=== PATIENT | male | born 1965 | race Hispanic/Latino ===

== ENCOUNTER → 2017-07-24 | Outpatient (CLI) | payer OTHER ==
[~2017-07-24] MED LIST: LOPID600 MG PO
--- NOTE | 2017-07-24 13:52 | Diagnostic Imaging Report ---
Lumbar Spine Radiographs: 5 views HISTORY: Pain COMPARISON: None available. DISCUSSION: Some of the osseous structures are partially obscured by stool and bowel gas. There are five non-rib bearing lumbar vertebral bodies. The alignment of the spine is within normal limits. Vertebral body heights are maintained. No displaced fracture or compression deformity is identified. Degenerative changes of lower thoracic and upper lumbar spine. L4-L5 and L5-S1 [id number] facet arthropathy. Multiple surgical clips and agustin overlying right abdomen and anterior to the lumbar spine. Pelvic phleboliths. IMPRESSION: No acute radiographic abnormality. Degenerative changes as above. Signed by: Dr. Chai Cohen MD on 07/24/2017 1:48 PM
--- NOTE | 2017-07-24 13:55 | Diagnostic Imaging Report ---
SACRUM X-RAY - 2 views HISTORY: Pain COMPARISON: None available. FINDINGS: Overlying bowel gas limits evaluation. No definite evidence of acute displaced fracture or dislocation. Pelvic phleboliths. Partially imaged midline lower abdomen skin agustin. IMPRESSION: No acute radiographic abnormality. Signed by: Dr. Chai Cohen MD on 07/24/2017 1:52 PM
== END ==
LOC: RAD 11:55
PROVIDERS: ATTEND Internal Medicine
DX: M54.5 Low back pain (principal)
CPT/HCPCS: 72110; 72220

== ENCOUNTER → 2019-04-08 | Day surgery (SDC) | payer OTHER ==
[2019-03-25 13:16] LABS: BASOPHILS % 0.6 % (0.0-1.0); EOSINOPHILS # (AUTO) 0.2 (0.0-0.4); EOSINOPHILS % 4.7 % (0.0-6.0); HEMATOCRIT 46.4 % (38.2-49.6); HEMOGLOBIN 16.2 g/dL (14.0-18.0); LYMPHOCYTES # (AUTO) 1.4 (1.0-3.2); LYMPHOCYTES % 29.5 % (18.0-39.1); MEAN CORPUSCULAR HEMOGLOBIN 31.7 pg (28-32); MEAN CORPUSCULAR HGB CONC 34.9 g/dL (31-35); MEAN CORPUSCULAR VOLUME 90.8 fL (81-99); MONOCYTES # (AUTO) 0.5 (0.2-0.8); MONOCYTES % 10.3 % (4.4-11.3); NEUTROPHILS # (AUTO) 2.6 (2.1-6.9); NEUTROPHILS % 54.5 % (38.7-80.0); PLATELET COUNT 274 x10e3/uL (140-360); RED BLOOD COUNT 5.11 x10e6/uL (4.3-5.7); RED CELL DISTRIBUTION WIDTH 12.3 % (11.7-14.4)
[2019-03-25 13:38] LABS: ANION GAP 12.5 mmol/L (8-16); BLOOD UREA NITROGEN 20 mg/dL (7-26); BUN/CREATININE RATIO 24 (6-25); CALCIUM 10.2 mg/dL (8.4-10.2); CARBON DIOXIDE 26 mmol/L (22-29); CHLORIDE 107 mmol/L (98-107); CREATININE, SERUM 0.85 mg/dL (0.72-1.25); EST GLOMERULAR FILTRATION RATE > 60 ML/MIN (60-); GLUCOSE 84 mg/dL (74-118); POTASSIUM 4.5 mmol/L (3.5-5.1); SODIUM 141 mmol/L (136-145)
[~2019-04-08] MED LIST changes: +ACETAMINOPHEN 1000 MG/100 ML IV ONE; +ASPIR 8181 MG PO; +BUPIVACAINE 0.25%/EPI 30ML SDV INJ ONE; +FENTANYL CITRATE/PF 100MCG/2 ML INJ ONE; +FLOMAX0.4 MG PO; +KETOROLAC TROMETHAMINE 30 MG/ML VIAL ONE; +LIDOCAINE HCL 1% LOCAL INJ 20 ML VIAL ONE; +LIDOCAINE HCL 2% LOCAL INJ 5 ML SDV VIAL INJ ONE; +MIDAZOLAM HCL 2 MG/2 ML VIAL ONE; +OMEPRAZOLE40 MG PO; +PROPOFOL IV EMULSION 10 MG/ML 20 ML VIAL ONE
--- OUTSIDE RECORDS SUMMARY | 2019-04-08 05:16 | XMS REPORT ---
Author Author [facility] Address Unknown Phone Unavailable Care Team Providers Care Construction Administrator Name Role Phone Ernie GUTIERREZ Unavailable Unavailable Problems This patient has no known problems. Allergies, Adverse Reactions, Alerts This patient has no known allergies or adverse reactions. Medications This patient has no known medications. Results Test Description Test Time Test Comments Text Results Atomic Results Result Comments SP LUMBAR, COMPLETE MIN 4VW [place] [address] Patient Name: BLADE GAO O MR #: [id number] : 1965 Age/Sex: 52/M Req #: [id number] Adm Physician: Ordered by: CHANTAL GUTIERREZ MD Report #: [id number] Location: [facility] Room/Bed: Procedure: [id number] DX/SP LUMBAR, COMPLETE MIN 4VW Exam Date: 07/24/17 Exam Time: 1155 REPORT STATUS: Signed Lumbar Spine Radiographs: 5 views HISTORY: Pain COMPARISON: None available. DISCUSSION: Some of the osseous structures are partially obscured by stool and bowel gas. There are five non-rib bearing lumbar vertebral bodies. The alignment of the spine is within normal limits. Vertebral body heights are maintained. No displaced fracture or compression deformity is identified. Degenerative changes of lower thoracic and upper lumbar spine. L4-L5 and L5-S1 [id number] facet arthropathy. Multiple surgical clips and agustin overlying right abdomen and anterior to the lumbar spine. Pelvic phleboliths. IMPRESSION: No acute radiographic abnormality. Degenerative changes as above. Signed by: Dr. Chai Cohen MD on 07/24/2017 1:48 PM Dictated By: CHAI COHEN MD [id number] Transcribed By: ANATOLY on 07/24/17 134 COPY TO: CHANTAL GUTIERREZ MD SACRUM X-RAY [place] [address] Patient Name: BLADE GAO MR #: [id number] : 1965 Age/Sex: 52/M Req #: [id number] Adm Physician: Ordered by: CHANTAL GUTIERREZ MD Report #: [id number] Location: [facility] Room/Bed: Procedure: [id number] DX/SACRUM X-RAY Exam Date: 07/24/17 Exam Time: 1155 REPORT STATUS: Signed SACRUM X-RAY - 2 views HISTORY: Pain COMPARISON: None available. FINDINGS: Overlying bowel gas limits evaluation. No definite evidence of acute displaced fracture or dislocation. Pelvic phleboliths. Partially imaged midline lower abdomen skin agustin. IMPRESSION: No acute radiographic abnormality. Signed by: Dr. Chai Cohen MD on 07/24/2017 1:52 PM Dictated By: CHAI COHEN MD 135 Transcribed By: ANATOLY on 07/24/17 135 COPY TO: CHANTAL GUTIERREZ MD
[2019-04-08 10:34] VITALS: BP 110/72
--- NOTE | 2019-04-08 17:23 | Operative Report ---
DATE OF PROCEDURE: 04/08/2019 SURGEON: Pravin Chaudhry MD PREOPERATIVE DIAGNOSIS: Right inguinal hernia. POSTOPERATIVE DIAGNOSIS: Right inguinal hernia. OPERATION PERFORMED: Repair of right inguinal hernia with extended Prolene hernia system. MILLED RUBBER TENDER: Nathalie Munguia. ANESTHESIA: Local 1% Xylocaine and 0.25% Marcaine and MAC. COMPLICATIONS: None. ESTIMATED BLOOD LOSS: Minimal. DESCRIPTION OF PROCEDURE: With the patient lying in bed in the supine position, under good IV sedation, and the abdomen was prepped with Betadine solution and draped in the usual manner. A standard field block of the right inguinal region was then performed using 0.25% Marcaine and 1% lidocaine mixed in equal parts. The right inguinal incision was made, it was carried down through the subcutaneous tissue down to the external oblique aponeurosis. External oblique was opened along the length of its fibers and external inguinal ring was opened. The cord was then mobilized and retracted. Exploration of the cord revealed the presence of a lipoma of the cord and an indirect hernia sac, which was from the cord structures and ligated with a suture ligature of 2-0 silk, the excess was resected. After this was done, the preperitoneal space was then entered right through the internal ring and a pocket was created without any difficulty. An extended Prolene hernia system was placed in the preperitoneal space and the underlay patch was deployed without any problems. The overlay patch was then placed over the floor and split inferolaterally to allow for passage of the cord. The mesh was then sutured to the conjoined tendon and the inguinal ligament using interrupted sutures of 2-0 Vicryl. The whole area was sterilely irrigated. Perfect hemostasis was ascertained. The external oblique aponeurosis was closed with a running suture of 2-0 Vicryl. The subcutaneous tissue was approximated with 3-0 plain and the skin was closed with clips. A dressing was applied. The sponge, lap, and needle counts were correct. The patient tolerated the procedure well and returned to the recovery room in stable condition. Pravin Chaudhry MD JLR/MODL /[id number]
== END | disposition home or self-care (01) ==
LOC: OR 05:14
PROVIDERS: ATTEND Surgery
DX: K40.90 Unilateral inguinal hernia, without obstruction or gangrene, not specified as recurrent (principal); Z01.810 Encounter for preprocedural cardiovascular examination; Z01.812 Encounter for preprocedural laboratory examination; K21.9 Gastro-esophageal reflux disease without esophagitis; N40.0 Benign prostatic hyperplasia without lower urinary tract symptoms; G47.33 Obstructive sleep apnea (adult) (pediatric); I73.9 Peripheral vascular disease, unspecified
CPT/HCPCS: 36415; 49505; 80048; 85025; 93005; C1781; J0131; J1885; J2001 ×2; J2250; J2704; J3010

== ENCOUNTER → 2020-04-06 | Outpatient (CLI) | payer OTHER ==
[~2020-04-06] MED LIST changes: -ACETAMINOPHEN 1000 MG/100 ML IV ONE; -BUPIVACAINE 0.25%/EPI 30ML SDV INJ ONE; -FENTANYL CITRATE/PF 100MCG/2 ML INJ ONE; -KETOROLAC TROMETHAMINE 30 MG/ML VIAL ONE; -LIDOCAINE HCL 1% LOCAL INJ 20 ML VIAL ONE; -LIDOCAINE HCL 2% LOCAL INJ 5 ML SDV VIAL INJ ONE; -MIDAZOLAM HCL 2 MG/2 ML VIAL ONE; -PROPOFOL IV EMULSION 10 MG/ML 20 ML VIAL ONE
--- NOTE | 2020-04-06 15:19 | Diagnostic Imaging Report ---
EXAMINATION: CHEST 2 VIEWS INDICATION: Obstructive sleep apnea COMPARISON: None FINDINGS: LINES/TUBES:None LUNGS:The lungs are well-inflated. No focal consolidation or pulmonary edema. PLEURA:No pleural effusion or pneumothorax. MEDIASTINUM:The cardiomediastinal silhouette appears normal in size and shape. BONES/SOFT TISSUES:No acute osseous injury. ABDOMEN:No free air under the diaphragm. IMPRESSION: No focal pneumonia or pulmonary edema. Signed by: Xiomara Ling MD on 04/06/2020 3:16 PM
--- NOTE | 2020-04-06 15:20 | Diagnostic Imaging Report ---
EXAMINATION: CERVICAL SPINE 4 OR 5 VIEWS INDICATION: Cervical spondylosis COMPARISON: None FINDINGS: AP, lateral, oblique and odontoid projections of the cervical spine demonstrate no acute fracture or dislocation. Alignment is anatomic. Vertebral body heights are maintained. Mild multilevel degenerative changes with disc space narrowing and small osteophyte formation. Partially visualized lung apices are clear. IMPRESSION: No acute osseous injury of the cervical spine. Mild multilevel degenerative changes. Signed by: Xiomara Ling MD on 04/06/2020 3:17 PM
--- NOTE | 2020-04-06 15:22 | Diagnostic Imaging Report ---
EXAMINATION: SP LUMBAR, COMPLETE MIN 4VW, SACRUM X-RAY INDICATION: Back pain COMPARISON: None FINDINGS: AP, oblique and lateral images of the lumbar spine and AP and lateral images of the sacrum demonstrate no acute fracture or dislocation. Alignment is anatomic. Vertebral body heights are well-maintained. Minimal multilevel degenerative changes with small osteophyte formation. Surgical clips overlie the visualized abdomen. Nonobstructive bowel gas pattern. Phleboliths in the pelvis. IMPRESSION: No acute osseous injury of the lumbar spine or sacrum. Minimal degenerative changes. Signed by: Xiomara Ling MD on 04/06/2020 3:18 PM
== END ==
LOC: RAD 13:18
PROVIDERS: ATTEND Internal Medicine
DX: M47.816 Spondylosis without myelopathy or radiculopathy, lumbar region (principal); M47.812 Spondylosis without myelopathy or radiculopathy, cervical region; G47.33 Obstructive sleep apnea (adult) (pediatric)
CPT/HCPCS: 71046; 72050; 72110; 72220